=== PATIENT | male | born 1960 | race Caucasian/White ===

== ENCOUNTER 2019-04-24 20:03 | Emergency (ER) | payer MEDICAID ==
[~2019-04-24] VITALS: Ht 160 cm; Wt 56.0 kg
[2019-04-24 21:27] LABS: BASOPHILS # (AUTO) 0.05 x10^3/uL (0-0.1); BASOPHILS % (AUTO) 1 % (0-1); EOSINOPHILS # (AUTO) 0.13 x10^3/uL (0-0.4); EOSINOPHILS % (AUTO) 1 % (1-7); LYMPHOCYTES % (AUTO) 29 % (22-44); MD NO; MEAN CORPUSCULAR HEMOGLOBIN 33.4 pg (27.5-34.5); MEAN CORPUSCULAR HGB CONC 34.3 g/dL (33.2-36.2); MEAN CORPUSCULAR VOLUME 97.4 fL (81-97); MEAN PLATELET VOLUME 7.2 fL (7.4-10.4); MONOCYTES # (AUTO) 0.74 x10^3/uL (0.2-0.8); MONOCYTES % (AUTO) 8 % (2-9); NEUTROPHILS # (AUTO) 5.86 x10^3/uL (1.8-6.8); NEUTROPHILS % (AUTO) 61 % (42-75); PLATELET COUNT 211 x10^3/uL (130-400); RED BLOOD COUNT 4.94 x10^6/uL (4.38-5.82); RED CELL DISTRIBUTION WIDTH 13.4 % (9.4-14.8)
--- NOTE | 2019-04-24 21:29 | NUR ---
LOWER ABD PAIN, STARTED THIS AM. DENIES N/V. LAST BM TODAY: SMALL PIECES, PHLEGMY, NO BLOOD. JUST RETURNED FROM 60HR TRIP TO [place] - EXPERIENCED LLQ PAIN DURING TRIP. NO MEDS TAKEN FOR SX. LAST ORAL INTAKE: DINNER LAST NOC 1929. SODA POP AT 1950 TONIGHT. PAIN IMPROVES IN RT LAT POSITON.
[2019-04-24 21:40] LABS: ALBUMIN 3.7 g/dL (3.4-5.0); ANION GAP 5 mmol/L (5-15); CALCIUM 8.7 mg/dL (8.5-10.1); CHLORIDE 104 mmol/L (98-107)
[2019-04-24 21:43] LABS: ALANINE AMINOTRANSFERASE 14 U/L (12-78); ALKALINE PHOSPHATASE 159 U/L (45-117); BILIRUBIN,TOTAL 1.4 mg/dL (0.2-1.0); CREATININE 1.27 mg/dL (0.7-1.3); TOTAL PROTEIN 7.4 g/dL (6.4-8.2)
--- NOTE | 2019-04-24 22:20 | NUR ---
CALLED CT RE: STATUS OF TEST. PER TECH, PT IS NEXT.
[2019-04-24 22:34] LABS: MICROSCOPIC NOT IND
--- NOTE | 2019-04-24 22:40 | NUR ---
STILL AWAITING CT
[2019-04-24 22:44] LABS: CULTURE INDICATED? NO
--- NOTE | 2019-04-24 22:45 | NUR ---
TO CT PER MANUEL
[2019-04-24] MEDS ORDERED: OMNIPAQUE 350 MG/ML, 100ML BOTTLE ONE (22:55)
--- NOTE | 2019-04-24 23:28 | NUR ---
PT REPORT TO WILDA BRITO. PT CARE TRANSFERRED.
[2019-04-24] MEDS ORDERED: AMPICILLIN/SULBACTAM 3 GM in SODIUM CHLORIDE 0.9% 100 ML IV ONE (23:30)
[2019-04-25] MEDS ORDERED: metroNIDAZOLE 500 MG TABLET ONE
[2019-04-25] MEDS ORDERED: metroNIDAZOLE 500 MG TABLET PO ONE
[2019-04-25 00:05] VITALS: BP 124/74
== END 2019-04-25 00:15 | disposition home or self-care (01) ==
LOC: ED 04-25 00:05
DX: K57.12 Diverticulitis of small intestine without perforation or abscess without bleeding (principal); F17.200 Nicotine dependence, unspecified, uncomplicated
CPT/HCPCS: 36415; 74177; 80053; 81003; 83690; 85025; 96365; 99284; J0295; Q9967

== ENCOUNTER 2020-04-18 22:44 | Emergency (ER) | payer SELFPAY ==
[~2020-04-18] VITALS: Ht 160 cm; Wt 55.2 kg
[2020-04-18 23:38] LABS: BASOPHILS # (AUTO) 0.01 x10^3/uL (0-0.1); BASOPHILS % (AUTO) 0 % (0-1); EOSINOPHILS # (AUTO) 0.07 x10^3/uL (0-0.4); EOSINOPHILS % (AUTO) 2 % (1-7); LYMPHOCYTES # (AUTO) 0.61 x10^3/uL (1-3.4); LYMPHOCYTES % (AUTO) 14 % (22-44); MD NO; MEAN CORPUSCULAR HEMOGLOBIN 33.4 pg (27.5-34.5); MEAN CORPUSCULAR HGB CONC 34.6 g/dL (33.2-36.2); MEAN CORPUSCULAR VOLUME 96.3 fL (81-97); MEAN PLATELET VOLUME 7.6 fL (7.4-10.4); MONOCYTES # (AUTO) 0.06 x10^3/uL (0.2-0.8); MONOCYTES % (AUTO) 2 % (2-9); NEUTROPHILS # (AUTO) 3.49 x10^3/uL (1.8-6.8); NEUTROPHILS % (AUTO) 82 % (42-75); PLATELET COUNT 147 x10^3/uL (130-400); RED BLOOD COUNT 4.74 x10^6/uL (4.38-5.82); RED CELL DISTRIBUTION WIDTH 13.6 % (9.4-14.8)
[2020-04-18 23:45] LABS: ALANINE AMINOTRANSFERASE 17 U/L (12-78); ALBUMIN 3.5 g/dL (3.4-5.0); ANION GAP 7 mmol/L (5-15); CALCIUM 8.5 mg/dL (8.5-10.1); CHLORIDE 105 mmol/L (98-107); CREATININE 1.45 mg/dL (0.7-1.3)
[2020-04-18 23:49] LABS: ALKALINE PHOSPHATASE 125 U/L (45-117); BILIRUBIN,TOTAL 1.4 mg/dL (0.2-1.0); TOTAL PROTEIN 7.1 g/dL (6.4-8.2); TROPONIN I 0.019 ng/mL (0.000-0.045)
--- NOTE | 2020-04-19 00:02 | NUR ---
PT PROVIDED WITH URINE CUP AND INSTRUCTIONS FOR SAMPLE COLLECTION. VERBALIZES UNDERSTANDING, DENIES ANY FURTHER NEEDS OR CONCERNS AT THIS TIME, CALL LIGHT IN REACH.
[2020-04-19 00:23] LABS: MICROSCOPIC NOT IND
[2020-04-19 00:34] VITALS: BP 94/61
== END 2020-04-19 01:22 | disposition home or self-care (01) ==
LOC: ED 23:14
DX: R53.81 Other malaise (principal); R53.1 Weakness; R53.83 Other fatigue; R94.31 Abnormal electrocardiogram [ECG] [EKG]; F17.200 Nicotine dependence, unspecified, uncomplicated
CPT/HCPCS: 36415; 71045; 80053; 81003; 83605; 84145; 84443; 84484; 85025; 93005; 99285